=== PATIENT | female | born 1945 | race Caucasian/White ===

== ENCOUNTER 2016-11-29 15:52 | Emergency (ER) | payer OTHER, BC, MEDICARE ==
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
[2016-11-29] MEDS ORDERED: CYCLOBENZAPRINE HCL 10 MG TABLET PO ONE (16:54)
[2016-11-29 19:29] VITALS: BP 149/65
== END 2016-11-29 19:29 | disposition home or self-care (01) ==
LOC: ER 15:52
DX: S80.00XA Contusion of unspecified knee, initial encounter (principal); S16.1XXA Strain of muscle, fascia and tendon at neck level, initial encounter; R53.1 Weakness; M79.601 Pain in right arm; M54.2 Cervicalgia; M54.9 Dorsalgia, unspecified; R07.89 Other chest pain; V87.7XXA Person injured in collision between other specified motor vehicles (traffic), initial encounter
CPT/HCPCS: 70450; 71020; 72050; 72070; 72110; 99285